=== PATIENT | male | born 1980 | race Caucasian/White ===

== ENCOUNTER 2020-04-19 17:53 | Emergency (ER) | payer OTHER ==
[~2020-04-19 17:53] MED LIST: ALLEGRA-D 24 H1 EACH PO; BACTROBAN NASAL1 GM TD; DICLOFENAC SODI75 MG PO; DOXYCYCLINE MO100 MG PO; SKELAXIN800 MG PO
[2020-04-19] MEDS ORDERED: NORCO 5-325 TA1 EACH PO ×2 (19:49→19:55)
[2020-04-19] MEDS ORDERED: NAPROXEN500 MG PO (19:55)
== END 2020-04-19 20:15 | disposition home or self-care (01) ==
LOC: FER 17:53
DX: S67.21XA Crushing injury of right hand, initial encounter (principal); S67.01XA Crushing injury of right thumb, initial encounter; W23.0XXA Caught, crushed, jammed, or pinched between moving objects, initial encounter; Y92.89 Other specified places as the place of occurrence of the external cause; Y99.0 Civilian activity done for income or pay
CPT/HCPCS: 73130

== ENCOUNTER 2020-06-12 09:54 | Emergency (ER) | payer OTHER ==
[~2020-06-12 09:54] MED LIST changes: +NAPROXEN500 MG PO; +NORCO 5-325 TA1 EACH PO
[2020-06-12 11:43] LABS: BASOPHIL 0.2 % (0-2); HCT 44.7 % (42.0-52.0); HGB 14.7 g/dl (13.2-18.0); LYMPHOCYTE 22.6 % (15-48); MCH 30.2 pg (25.0-31.0); MCHC 32.9 g/dL (32.0-36.0); MONOCYTE 4.1 % (0-12); MPV 9.6 fL (6.0-9.5); NEUTROPHIL 69.9 % (41-80); NRBC 0; PLT 286 K/uL (150-400); RBC 4.86 M/uL (4.70-6.00); RDW 12.5 % (11.5-14.0); WBC 9.8 K/uL (4.0-10.5)
[2020-06-12 12:14] LABS: ALBUMIN 3.7 g/dL (3.4-5.0); BILIRUBIN - TOTAL 0.4 mg/dL (0.2-1.0); BUN/CREAT RATIO (CALC) 6.9 RATIO; CREATININE 1.02 mg/dL (0.67-1.17); GLOBULIN (CALCULATION) 2.9 g/dL; POTASSIUM 4.4 mmol/L (3.5-5.1); TOTAL PROTEIN 6.6 g/dL (6.4-8.2)
[2020-06-12] MEDS ORDERED: VIBRAMYCIN100 MG PO (13:45)
[2020-06-12] MEDS ORDERED: BACTROBAN NASAL1 GM TOP (13:45)
== END 2020-06-12 14:04 | disposition home or self-care (01) ==
LOC: FER 09:54
PROVIDERS: Emergency Medicine
DX: H60.12 Cellulitis of left external ear (principal); R59.0 Localized enlarged lymph nodes; F17.210 Nicotine dependence, cigarettes, uncomplicated
CPT/HCPCS: 36415; 70491; 80053; 84145; 85025; J1885; J2405; J7030; Q9967

== ENCOUNTER 2021-04-25 19:37 | Emergency (ER) | payer OTHER ==
[~2021-04-25 19:37] MED LIST changes: +BACTROBAN NASAL1 GM TOP; +VIBRAMYCIN100 MG PO
[2021-04-25 20:30] LABS: BASOPHIL 0.3 % (0-2); EOSINOPHIL 0.2 % (0-5); LYMPHOCYTE 9.1 % (15-48); MCH 30.5 pg (25.0-31.0); MCHC 34.1 g/dL (32.0-36.0); MCV 89.6 fL (78.0-100.0); MONOCYTE 15.6 % (0-12); MPV 9.2 fL (6.0-9.5); NEUTROPHIL 74.3 % (41-80); NRBC 0; PLT 229 K/uL (150-400); RBC 4.91 M/uL (4.70-6.00); RDW 12.3 % (11.5-14.0); WBC 5.7 K/uL (4.0-10.5)
[2021-04-25 20:31] LABS: BILIRUBIN NEGATIVE (NEGATIVE); BLOOD NEGATIVE Ery/uL (NEGATIVE); CLARITY CLEAR (CLEAR); COLOR YELLOW (YELLOW); GLUCOSE (U) NORMAL (NORMAL); LEUKOCYTES NEGATIVE Leu/uL (NEGATIVE); NITRITE NEGATIVE (NEGATIVE); PROTEIN NEGATIVE (NEGATIVE); UROBILINOGEN 0.2 mg/dL (0.2-1.0)
[2021-04-25 20:32] LABS: AMPHETAMINES NEGATIVE (NEGATIVE); BARBITURATES NEGATIVE (NEGATIVE); ECSTASY (MDMA) NEGATIVE (NEGATIVE); MARIJUANA (THC) POSITIVE (NEGATIVE); METHADONE NEGATIVE (NEGATIVE); OXYCODONE NEGATIVE (NEGATIVE)
[2021-04-25 20:33] LABS: OPIATES POSITIVE (NEGATIVE)
[2021-04-25 20:52] LABS: BUN/CREAT RATIO (CALC) 7.5 RATIO; CREATININE 0.8 mg/dL (0.67-1.17); POTASSIUM 3.6 mmol/L (3.5-5.1)
== END 2021-04-25 22:17 | disposition home or self-care (01) ==
LOC: FER 19:37
PROVIDERS: Nurse Practitioner Family
DX: K40.90 Unilateral inguinal hernia, without obstruction or gangrene, not specified as recurrent (principal); F17.210 Nicotine dependence, cigarettes, uncomplicated
CPT/HCPCS: 36415; 80048; 80305; 81003; 85025; Q9967